=== PATIENT | female | born 1975 | race Caucasian/White ===

== ENCOUNTER 2020-07-31 11:39 | Emergency (ER) | payer OTHER, SELFPAY ==
--- NOTE | 2020-07-31 11:52 | DI.RAD.S_ITS ---
PROCEDURE: XR LUMBAR SPINE 2-3V INDICATIONS: lower back pain TECHNIQUE: Three views of the lumbar spine were acquired. COMPARISON: None. FINDINGS: Bones: Five [id number] vertebrae are present. There is normal bony alignment. No vertebral body compression fractures. No suspicious bony lesions. Soft tissues: Overlying bowel gas pattern is normal. No suspicious soft tissue calcifications. IMPRESSION: Normal lumbar spine. Dictated by: Felicity Mejia M.D. on 07/31/2020 at 12:25 Approved by: Felicity Mejia M.D. on 07/31/2020 at 12:25
[2020-07-31 11:55] VITALS: BP 111/64; PULSE 89; RESP 18; TEMP 36.6; O2SAT 98; BMI 32.5
[2020-07-31] MEDS: KETOROLAC 60 MG/2 ML VIAL 30 MG IM (12:29)
[2020-07-31] MEDS: CYCLOBENZAPRINE 10 MG TABLET PO (12:29)
[2020-07-31] MEDS: LIDOCAINE PATCH 1 EACH ADH..PATCH TOP (12:30)
[2020-07-31 13:31] VITALS: BP 107/72; PULSE 73; RESP 16; O2SAT 100
--- NOTE | 2020-07-31 13:32 | ED.BACK ---
HPI - Back Pain/Injury <JOSLYN Mooney- - Last Filed: 07/31/20 15:14> General Chief Complaint: Back Pain/Injury Stated Complaint: back pain Time Seen by Provider: 07/31/20 11:41 Source: patient and family Mode of arrival: Ambulatory Limitations: no limitations History of Present Illness HPI Narrative: The patient is a 45-year-old female current everyday smoker who denies pertinent medical history presents with a chief complaint of lower back pain for the past 4 days. She states that 4 days ago she was practicing karate with her daughter when she had pain in her lower back radiating around her right side. She has tried Tylenol, Motrin, pain patches, warm bathes as an ice packs. She states that her pain is worse when she moves. She denies any incontinence of bowel, incontinence of bladder or saddle anesthesia. She denies any history of back pain. She states that she is having a hard time getting rest because of her pain. On occasion a radiates down her right leg. Her primary care providers with [facility], she has not followed up with them. She denies any fevers nausea vomiting diarrhea chest pain or shortness of breath. Related Data Previous Rx's Medication Instructions Recorded cyclobenzaprine 10 mg PO TID PRN #14 tab 07/31/20 ketorolac 10 mg PO TID PRN #14 tab 07/31/20 lidocaine 1 patch TOP DAILY PRN #15 each 07/31/20 Allergies Allergy/AdvReac Type Severity Reaction Status Date / Time No Known Drug Allergies Allergy Verified 07/31/20 12:01 Review of Systems <BALDEMAR Mooney - Last Filed: 07/31/20 15:14> Review of Systems Narrative: GENERAL: Denies chills, fatigue, malaise, fever, sweats. HEENT: Denies sinus pain, ear pain, sore throat, difficulty swallowing, dizziness. RESPIRATORY: Denies dyspnea, cough, wheezing, hemoptysis, sputum. CARDIOVASCULAR: Denies chest pain, palpitations, orthopnea, edema, GASTROINTESTINAL: Denies nausea, vomiting, abdominal pain, diarrhea, constipation, melena. : Denies dysuria, frequency, incontinence, hematuria, urinary retention. MUSCULOSKELETAL: See HPI SKIN: Denies rash, skin lesions, or other NEUROLOGIC: Denies weakness, headache, numbness, change in speech, confusion, seizures, incoordination. PSYCHIATRIC: No concerning psychosocial issues. 12 point review of systems is negative except for those stated above Patient History <AL Mooney - Last Filed: 07/31/20 15:14> Social History Smoking Status: Current every day smoker Smoking Status: Current every day smoker alcohol intake frequency: a few times a week Substance Use Type: marijuana Exam <AL Mooney - Last Filed: 07/31/20 15:14> Narrative Exam Narrative: GENERAL: This is a well-nourished, well-developed patient, in no acute distress HEAD: Atraumatic. Normocephalic. No temporal or scalp tenderness. EYES: Pupils equal round and reactive. Extraocular motions intact. No scleral icterus. No injection or drainage. ENT: Nose without bleeding, purulent drainage or septal hematoma. Wearing a mask. Airway patent. NECK: Trachea midline. No JVD or lymphadenopathy. Supple, nontender, no meningeal signs. CARDIOVASCULAR: Regular rate and rhythm RESPIRATORY: Clear to auscultation. Breath sounds equal bilaterally. No wheezes, rales, or rhonchi. GASTROINTESTINAL: Abdomen soft, non-tender, nondistended. No hepato-splenomegaly, or palpable masses. No guarding. EXTREMITIES: Strength is equal upper lower extremities bilaterally. Stable gait. No clubbing, cyanosis, or edema. No joint tenderness, effusion, or edema noted. Sensation intact bilateral upper thighs. BACK: Cervical and thoracic spine are Nontender without deformity or crepitance. Pain to lumbar spine palpation, pain to right lumbar paraspinal muscle palpation. No palpable step-offs or deformities. NEURO: AOx3. Interactive. SKIN: No rash or erythema on visible skin Initial Vital Signs Initial Vital Signs: Vital Signs Temperature 98 F 07/31/20 11:55 Pulse Rate 89 07/31/20 11:55 Respiratory Rate 18 07/31/20 11:55 Blood Pressure 111/64 07/31/20 11:55 Pulse Oximetry 98 07/31/20 11:55 <An Otoole MD - Last Filed: 07/31/20 16:21> Initial Vital Signs Initial Vital Signs: Vital Signs Temperature 98 F 07/31/20 11:55 Pulse Rate 89 07/31/20 11:55 Respiratory Rate 18 07/31/20 11:55 Blood Pressure 111/64 07/31/20 11:55 Pulse Oximetry 98 07/31/20 11:55 Scores <AL Mooney - Last Filed: 07/31/20 15:14> GCS [place] coma scale eye opening: Spontaneous Amol coma scale verbal response: Orientated [place] coma scale motor response: Obey commands Amol coma scale total score: 15 Course <AL Mooney - Last Filed: 07/31/20 15:14> Orders Ordered: ED Orders 07/31/20 11:52 XR lumbar spine 2-3V Stat Discontinued Medications Cyclobenzaprine HCl (Flexeril) 10 mg PO NOW ONE Stop: 07/31/20 11:53 Last Admin: 07/31/20 12:29 Dose: 10 mg Documented by: DESHAWN Ketorolac Tromethamine (Toradol) 30 mg IM NOW ONE Stop: 07/31/20 11:53 Last Admin: 07/31/20 12:29 Dose: 30 mg Documented by: DESHAWN Lidocaine (Lidoderm) 1 each TOP NOW ONE Stop: 07/31/20 11:53 Last Admin: 07/31/20 12:30 Dose: 1 each Documented by: DESHAWN Vital Signs Vital signs: Vital Signs - 8 hr 07/31/20 11:55 07/31/20 13:31 Temperature 98 F Pulse Rate 89 73 Respiratory Rate 18 16 Blood Pressure 111/64 107/72 Pulse Oximetry 98 100 <An Otoole MD - Last Filed: 07/31/20 16:21> Orders Ordered: ED Orders 07/31/20 11:52 XR lumbar spine 2-3V Stat Discontinued Medications Cyclobenzaprine HCl (Flexeril) 10 mg PO NOW ONE Stop: 07/31/20 11:53 Last Admin: 07/31/20 12:29 Dose: 10 mg Documented by: DESHAWN Ketorolac Tromethamine (Toradol) 30 mg IM NOW ONE Stop: 07/31/20 11:53 Last Admin: 07/31/20 12:29 Dose: 30 mg Documented by: DESHAWN Lidocaine (Lidoderm) 1 each TOP NOW ONE Stop: 07/31/20 11:53 Last Admin: 07/31/20 12:30 Dose: 1 each Documented by: AUPDIKE Vital Signs Vital signs: Vital Signs - 8 hr 07/31/20 11:55 07/31/20 13:31 Temperature 98 F Pulse Rate 89 73 Respiratory Rate 18 16 Blood Pressure 111/64 107/72 Pulse Oximetry 98 100 [facility] - Back Pain/Injury <AL Mooney - Last Filed: 07/31/20 15:14> Lab Data Labs: Point of Care Testing Test Results Negative Urine Dip Bedside Urine Glucose Negative Bedside Urine Bilirubin - Negative Bedside Urine Ketone - Negative Urine Specific [place] 1.030 Bedside Urine Occult Blood - Negative Bedside Urine pH 5.5 Bedside Urine Protein - Negative Bedside Urine Urobilinogen +/- 1mg Bedside Urine Nitrite - Negative Bedside Urine Leukocytes - Negative Esterase Imaging Data lumbar xray : Radiologist's Impression: [address] [place] [id number] XRay Report Signed Patient: Orly Zhou#: [id number] : 1975Acct:[id number] Age/Sex: 45 / FDate of Service: 07/31/20 Loc: ED Accession Number: [id number] Procedure: XR lumbar spine 2-3V Ordering Provider: Estelita Herring PROCEDURE: XR LUMBAR SPINE 2-3V INDICATIONS: lower back pain TECHNIQUE: Three views of the lumbar spine were acquired. COMPARISON: None. FINDINGS: Bones: Five [id number] vertebrae are present. There is normal bony alignment. No vertebral body compression fractures. No suspicious bony lesions. Soft tissues: Overlying bowel gas pattern is normal. No suspicious soft tissue calcifications. IMPRESSION: Normal lumbar spine. Dictated by: Felicity Mejia M.D. on 07/31/2020 at 12:25 Approved by: Felicity Mejia M.D. on 07/31/2020 at 12:25 [facility] Narrative Medical decision making narrative: The patient is a 45-year-old female who presents with a chief complaint of lumbar spine pain that improves greatly after the above-stated therapies. She does not have any red flag symptoms of incontinence bowel, incontinence of bladder or saddle anesthesia but states understanding that these are return precautions. I discussed at length the importance of following up with primary care provider in the next few days as she may benefit from further examination, physical therapy etcetera. She is requesting to go home after the above-stated therapies in a provider prescriptions. Discussed at length the importance of follow-up with primary care provider coming back to the emergency department for any acute concerns such as incontinence of bowel, incontinence of bladder saddle anesthesia. Patient has been of no questions or concerns upon discharge and state understanding of return precautions as well as follow-up care. <An Otoole MD - Last Filed: 07/31/20 16:21> Lab Data Labs: Point of Care Testing Test Results Negative Urine Dip Bedside Urine Glucose Negative Bedside Urine Bilirubin - Negative Bedside Urine Ketone - Negative Urine Specific [place] 1.030 Bedside Urine Occult Blood - Negative Bedside Urine pH 5.5 Bedside Urine Protein - Negative Bedside Urine Urobilinogen +/- 1mg Bedside Urine Nitrite - Negative Bedside Urine Leukocytes - Negative Esterase Discharge Plan Departure Patient Disposition: Home Clinical Impression: Strain of lumbar region Qualifiers: Encounter type: initial encounter Qualified Code(s): S39.012A - Strain of muscle, fascia and tendon of lower back, initial encounter Acute back pain Qualifiers: Back pain location: low back pain Back pain laterality: right Sciatica presence: without sciatica Qualified Code(s): M54.5 - Low back pain Discharge Date/Time: 07/31/20 13:57 Instructions: DI for Low Back Pain, DI for Back Spasm, DI for Back Strain or Sprain Activity Restrictions/Additional Instructions: Thank you for trusting us with your care today Please follow-up with primary care provider in the next 48-72 hours. I sent 3 prescriptions to [facility]. This includes ketorolac or Toradol for pain, cyclobenzaprine as a muscle relaxer and lidocaine patches. As I discussed, your x-ray shows no acute fracture. This does not rule out a soft tissue injury such as a ligament or tendon injury. It is important that you follow up with primary care provider, especially if worsening or no improvement. As discussed, please come back to the emergency department for any acute concerns such as incontinence of bowel, incontinence of bladder or numbness in her groin. I have given you a prescription of Toradol. This is an NSAID. Do not combine it with other NSAIDs such as Aleve or ibuprofen. I suggest taking it with some food, as it can irritate your stomach. I also sent in cyclobenzaprine which is a muscle relaxer. Please do not take this and drive or combine it with anything sedating. Prescriptions: New lidocaine 5 % adhesive patch,medicated 1 patch TOP DAILY PRN (Reason: pain) Qty: 15 RF: 0 ketorolac 10 mg tablet 10 mg PO TID PRN (Reason: pain) Qty: 14 RF: 0 cyclobenzaprine 10 mg tablet 10 mg PO TID PRN (Reason: muscle spasm) Qty: 14 RF: 0 <An Otoole MD - Last Filed: 07/31/20 16:21> Cosign ED Attending Cosignature Attestation: I was immediately available in the department for consultation throughout this patient's visit. I agree with documentation as above. An Otoole MD
== END 2020-07-31 13:57 | disposition home or self-care (01) ==
PROVIDERS: Emergency Provider Nurse Practitioner Family
DX: S39.012A Strain of muscle, fascia and tendon of lower back, initial encounter (principal); M62.830 Muscle spasm of back; Y93.75 Activity, martial arts
CPT/HCPCS: 72100; 81003; 81025; 96372; 99283; 99284; J1885

== ENCOUNTER 2020-12-27 16:24 | Emergency (ER) | payer OTHER, SELFPAY ==
[2020-12-27 16:34] VITALS: BP 131/98; PULSE 96; RESP 16; TEMP 36.7; O2SAT 99; BMI 33.3
--- NOTE | 2020-12-27 16:44 | PC.NURSE ---
pt states she was lifting a box when she felt something in her back.
[2020-12-27] MEDS: KETOROLAC 60 MG/2 ML VIAL 30 MG IM (17:18)
--- NOTE | 2020-12-27 17:18 | ED_ITS ---
HPI - Back Pain/Injury General Chief Complaint: Back Pain/Injury Stated Complaint: back pain Time Seen by Provider: 12/27/20 16:56 Source: patient Mode of arrival: Ambulatory Limitations: no limitations History of Present Illness HPI Narrative: Patient is a 45-year-old female who presents with right-sided back pain. She states that she was at work 2 days ago in the [employer] office when she went into a large tub to pull out a box. She says she felt something happen then but immediately after it was okay then when the time she got home she felt like it was spasming. She is able to work today but the pain seems to be progressively getting worse. She occasionally has some numbness tingling around to her anterior right thigh. No changes in bowel or bladder habits no fever. She has been doing light exercise is of yoga poses cat and cow she has done heating pad and stretching. She has also been taking Aleve and Tylenol without any relief. MD Complaint: back pain and back injury Onset (ago): day(s) (2) Location: lumbar spine Severity: moderate Related Data Previous Rx's Medication Instructions Recorded cyclobenzaprine 10 mg PO TID PRN #14 tab 07/31/20 ketorolac 10 mg PO TID PRN #14 tab 07/31/20 lidocaine 1 patch TOP DAILY PRN #15 each 07/31/20 methocarbamol 1,000 mg PO QID 4 Days #32 tab 12/27/20 Allergies Allergy/AdvReac Type Severity Reaction Status Date / Time No Known Drug Allergies Allergy Verified 07/31/20 12:01 Review of Systems Review of Systems Narrative: GENERAL: Denies chills, fatigue, malaise, fever, sweats, travel HEENT: Denies sinus pain, ear pain, sore throat, difficulty swallowing, neck pain RESPIRATORY: Denies dyspnea, cough, wheezing, hemoptysis, sputum. CARDIOVASCULAR: Denies chest pain, palpitations, orthopnea, edema GASTROINTESTINAL: Denies nausea, vomiting, abdominal pain, diarrhea, constipation, melena. : Denies dysuria, frequency, incontinence, hematuria, urinary retention, flank pain. MUSCULOSKELETAL: See HPI SKIN: No rash, no erythema, no pruritus NEUROLOGIC: Denies weakness, dizziness, headache, numbness, change in speech, confusion PSYCHIATRIC: No concerning psychosocial issues. 12 point review of systems is negative except for those stated above and HPI Patient History Social History Smoking Status: Current every day smoker Smoking Status: Current every day smoker alcohol intake frequency: a few times a week Substance Use Type: marijuana Exam Initial Vital Signs Initial Vital Signs: Vital Signs Temperature 98.1 F 12/27/20 16:34 Pulse Rate 96 H 12/27/20 16:34 Respiratory Rate 16 12/27/20 16:34 Blood Pressure 131/98 H 12/27/20 16:34 Pulse Oximetry 99 12/27/20 16:34 GENERAL: Alert pleasant 45-year-old female and in no acute distress. HEENT: Head atraumatic,EOMI, pupils reactive, face symmetric, moist mucous membranes CARDIOVASCULAR: Regular rate and rhythm without murmurs, rubs or gallops. RESPIRATORY: Breath sounds equal bilaterally, no wheezes rales or rhonchi. ABDOMEN: Soft, nontender. Normoactive bowel sounds all 4 quadrants. No guarding or rebound. BACK: No midline tenderness tender in right lower lumbar area EXTREMITIES: Normal range of motion, no clubbing or edema. Neurovascularly intact NEUROLOGICAL: Alert and oriented x4.Normal gait and speech. No gross cranial nerve deficits SKIN: Warm, dry, no laceration, no petechiae, no rashes or lesions. Course Orders Ordered: Discontinued Medications Cyclobenzaprine HCl (Cyclobenzaprine 10 Mg Prepack) 1 bottle MISC SEEINSTR ONE Stop: 12/27/20 17:19 Last Admin: 12/27/20 17:26 Dose: 1 bottle Documented by: BTONER Ketorolac Tromethamine (Ketorolac 60 Mg/2 Ml Vial) 30 mg IM NOW ONE Stop: 12/27/20 17:08 Last Admin: 12/27/20 17:18 Dose: 30 mg Documented by: BTONER Vital Signs Vital signs: Vital Signs - 8 hr 12/27/20 16:34 12/27/20 17:34 Temperature 98.1 F Pulse Rate 96 H 81 Respiratory Rate 16 18 Blood Pressure 131/98 H 123/81 Pulse Oximetry 99 100 Discharge Plan Departure Patient Disposition: Home Clinical Impression: Acute low back pain Qualifiers: Back pain laterality: right Sciatica presence: without sciatica Qualified Code(s): M54.5 - Low back pain Instructions: DI for Back Spasm Activity Restrictions/Additional Instructions: *You have been diagnosed with low back pain *What to do: Increase activity as tolerated *Continue to take medications as directed--> SENT TO [facility] IN [place] Ibuprofen 600 mg every 6-8 hours Methocarbamol 1000 mg 4 times a day only if needed for muscle spasm. This does cause drowsiness Flexeril 5 mg every 8 hours if needed for muscle spasm *Follow up with your primary care provider in 2-3 days *Return to ER if you should have increasing pain, weakness in the leg numbness tingling or any new, worsening or concerning symptoms Prescriptions: New methocarbamol 500 mg tablet 1,000 mg PO QID 4 Days Qty: 32 RF: 0 No Action lidocaine 5 % adhesive patch,medicated 1 patch TOP DAILY PRN (Reason: pain) Qty: 15 RF: 0 ketorolac 10 mg tablet 10 mg PO TID PRN (Reason: pain) Qty: 14 RF: 0 cyclobenzaprine 10 mg tablet 10 mg PO TID PRN (Reason: muscle spasm) Qty: 14 RF: 0 Referrals: [facility] [Outside]
[2020-12-27] MEDS: CYCLOBENZAPRINE 10 MG PREPACK 1 BOTTLE MISC (17:26)
[2020-12-27 17:34] VITALS: BP 123/81; PULSE 81; RESP 18; O2SAT 100
== END 2020-12-27 17:34 | disposition home or self-care (01) ==
PROVIDERS: Emergency Provider Emergency Medicine
DX: M54.5 Low back pain (principal); M62.830 Muscle spasm of back; X50.9XXA Other and unspecified overexertion or strenuous movements or postures, initial encounter; Y99.0 Civilian activity done for income or pay
CPT/HCPCS: 96372; 99281; 99283; J1885